=== PATIENT | female | born 1985 | race Caucasian/White ===

== ENCOUNTER → 2016-09-12 | Outpatient (CLI) | payer MEDICAID | LOC: MW.CHOBGYN 11:25 | PROVIDERS: ATTEND Obstetrics & Gynecology | DX: Z34.81 Encounter for supervision of other normal pregnancy, first trimester (principal) | CPT/HCPCS: 81003 ==

== ENCOUNTER → 2016-10-10 | Outpatient (CLI) | payer MEDICAID | LOC: MW.CHOBGYN 10:50 | PROVIDERS: ATTEND Obstetrics & Gynecology | DX: Z34.81 Encounter for supervision of other normal pregnancy, first trimester (principal) | CPT/HCPCS: 36415; 81003; 85027; 86592; 86762; 86803; 86850; 86900; 86901; 87086; 87088; 87186; 87340; 87389 ==

== ENCOUNTER → 2016-10-31 | Outpatient (CLI) | payer MEDICAID ==
--- NOTE | 2016-11-01 15:11 | US ---
EXAM DATE: 10/31/16 PATIENT'S AGE: 31 Patient: SHELTON SOLITARIO Facility: [place], [place] Site . Site : 1985 Study: US OB Pelvis [id number] 5:02:55 PM Ordering Physician: Vanda Vargas Final Report: Indication : Evaluate anatomy. TECHNIQUE: Real time valdez scale imaging of the fetus was performed as well as color Doppler analysis of the umbilical vessels. FINDINGS: Sonographic imaging demonstrates a single living intrauterine gestation. Fetus demonstrates a regular cardiac rate of 151 beats per minute. Fetus has a cephalic orientation. The placenta lies posterior without suggestion of placenta previa. Amniotic fluid volume appears normal. Amniotic fluid index 8.8 cm. The cervix is closed and measures 2.5 cm in length. The composite ultrasound gestational age is calculated at 19 weeks 4 days with an estimated sonographic due date of 23 March 2017. The estimated weight is 300 grams which lies at the 17th percentile. The following biometric measurements were obtained: Biparietal diameter: 4.6 cm / 19 weeks 5 days Head circumference: 17.1 cm / 19 weeks 4 days Abdominal circumference: 14.5 cm / 19 weeks 6 days Femur length: 3 cm / 19 weeks 2 days On anatomic survey, there is a normal appearance of the cerebral ventricles, cisterna magna and cerebellum. The nose, lips, and facial profile appear normal. The cervical, thoracic and lumbar spine are well visualized and appear normal. There is a normal four-chamber heart view and the left and right ventricular outflow tracts appear normal. diaphragm, stomach, kidneys and bladder appear normal. There is a normal three-vessel cord and cord insertion site. The four extremities appear normal. IMPRESSION: Partial placenta previa. Followup recommended. Concordance of clinical and sonographic dating. No intrinsic abnormalities noted on anatomic survey. Dictated by Angel Ashraf MD @ Nov 01 2016 2:20PM (Electronic Signature) Report Signed by Proxy. JULIÁN
== END ==
LOC: MW.US 14:29
PROVIDERS: ATTEND Obstetrics & Gynecology
DX: Z34.92 Encounter for supervision of normal pregnancy, unspecified, second trimester (principal); Z36 Encounter for antenatal screening of mother; Z3A.19 19 weeks gestation of pregnancy
CPT/HCPCS: 76805; 76805-26

== ENCOUNTER → 2016-11-07 | Outpatient (CLI) | payer MEDICAID | END | disposition home or self-care (01) | LOC: MW.CHOBGYN 13:32 | PROVIDERS: ATTEND Advanced Practice Midwife | DX: Z34.90 Encounter for supervision of normal pregnancy, unspecified, unspecified trimester (principal) | CPT/HCPCS: 36415; 80305; 82105; 82677; 84702; 86336; 87491; 87591 ==

== ENCOUNTER 2017-03-16 05:08 | Inpatient (IN) | payer MEDICAID ==
[2017-03-16] MEDS ORDERED: Misoprostol 200 MCG Tab PO PRN (06:02)
[2017-03-16] MEDS ORDERED: Misoprostol 25 MCG (1/4 of 100 MCG) Tab PO PRN (06:02)
[2017-03-16] MEDS ORDERED: Carboprost Tromethamine 250 MCG/1 ML Amp IM PRN (06:02)
[2017-03-16] MEDS ORDERED: Methylergonovine 0.2 MG/1 ML Amp IM PRN (06:02)
[2017-03-16] MEDS ORDERED: Sodium Chloride 0.9% 10 ML Syringe FLUSH PRN (06:02)
[2017-03-16] MEDS ORDERED: Terbutaline 1 MG/ML SDV SUBCUT PRN (06:02)
[2017-03-16] MEDS ORDERED: Water For Irrigation,Sterile 1,000 ML Container IRR PRN (06:02)
[2017-03-16] MEDS ORDERED: Misoprostol 25 MCG (1/4 of 100 MCG) Tab VAG PRN (06:02)
[2017-03-16] MEDS ORDERED: Nalbuphine 10 MG/1 ML Vial IVPUSH PRN (06:02)
[2017-03-16] MEDS ORDERED: Sodium Chloride 0.9% 2.5 ML Syringe FLUSH PRN (06:02)
[2017-03-16] MEDS ORDERED: Lidocaine 1% 50 ML MDV INJECT PRN (06:02)
[2017-03-16] MEDS ORDERED: Misoprostol 25 MCG (1/4 of 100 MCG) Tab PO SCH (06:15)
[2017-03-16] MEDS ORDERED: Lactated Ringers 1,000 ML IV SCH (06:15)
[2017-03-16] MEDS ORDERED: Oxytocin/Lactated Ringers 30 UNIT/500 ML BAG IV SCH ×2 (06:15)
[2017-03-16] MEDS ORDERED: Misoprostol 25 MCG (1/4 of 100 MCG) Tab VAG SCH (06:15)
[2017-03-16] MEDS ORDERED: Ampicillin 2 GM in Sodium Chloride 0.9% 100 ML IV ONE (06:30)
[2017-03-16] MEDS ORDERED: Ampicillin 1 GM in Sodium Chloride 0.9% 50 ML IV SCH (10:30)
--- NOTE | 2017-03-16 11:43 | PCM.LDHP ---
L&D History of Present Illness - General Date of Service: 03/16/17 Admit Problem/Dx: Patient Status Order with Admit Dx/Problem 03/16/17 05:20 Patient Status [ADT] Routine 03/16/17 06:02 Patient Status [ADT] Routine Admission Diagnosis/Problem Admission Diagnosis/Problem 03/16/17 11:39 32 yo EDC 03/19/2017 39 4/7wks B+, RI, GBS pos. Comes due to SROM clear. 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: , 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 - Past Surgical History Female Surgical History: Reports: LEEP Social & Family History - Family History Family Medical History: Noncontributory - Tobacco Use Smoking Status *Q: Current Every Day Smoker Years of Tobacco use: 5 Packs/Tins Daily: 0.5 Used Tobacco, but Quit: No Second Hand Smoke Exposure: Yes - Caffeine Use Caffeine Use: Reports: Coffee, Soda - Alcohol Use Days Per Week of Alcohol Use: 0 - Recreational Drug Use Recreational Drug Use: No Drug Use in Last 12 Months: No H&P Review of Systems - Review of Systems: Review Of Systems: See Below General: Reports: No Symptoms HEENT: Reports: No Symptoms Pulmonary: Reports: No Symptoms Cardiovascular: Reports: No Symptoms Gastrointestinal: Reports: No Symptoms Genitourinary: Reports: No Symptoms Musculoskeletal: Reports: No Symptoms Skin: Reports: No Symptoms Psychiatric: Reports: No Symptoms Neurological: Reports: No Symptoms Hematologic/Lymphatic: Reports: No Symptoms Immunologic: Reports: No Symptoms L&D Exam - Exam Exam: See Below - Vital Signs Weight: 70.307 kg - Exam General: Alert, Oriented, Cooperative HEENT: Hearing Intact Lungs: Normal Respiratory Effort GI/Abdominal Exam: Soft, Non-Tender, No Organomegaly, No Distention (gravid), No Mass Rectal Exam: Deferred Genitourinary: Cervical fluid Back Exam: Full Range of Motion Extremities: Normal Range of Motion, Non-Tender, No Pedal Edema, Normal Capillary Refill Skin: Warm, Dry, Intact Neurological: Cranial Nerves Intact Psychiatric: Alert, Normal Affect, Normal Mood - Patient Data Lab Results Last 24 hrs: Laboratory Results - last 24 hr 03/16/17 03/16/17 03/16/17 Range/Units 05:25 06:30 06:30 WBC 9.00 (4.0-11.0) K/uL RBC 4.10 L (4.30-5.90) M/uL Hgb 12.3 (12.0-16.0) g/dL Hct 37.0 (36.0-46.0) % MCV 90.2 (80.0-98.0) fL MCH 30.0 (27.0-32.0) pg MCHC 33.2 (31.0-37.0) g/dL RDW Std Deviation 46.5 (28.0-62.0) fl RDW Coeff of Logan 14 (11.0-15.0) % Plt Count 151 (150-400) K/uL MPV 12.10 H (7.40-12.00) fL Nucleated RBC % 0.0 /100WBC Nucleated RBCs # 0 K/uL Membrane Rupture POSITIVE Blood Type B POSITIVE Antibody Screen NEGATIVE Result Diagrams: 03/16/17 06:30 - Problem List (1) Supervision of normal IUP (intrauterine ) in multigravida SNOMED Code(s): 004373509, 427943115, 786487370 ICD Code: Z34.80 - ENCOUNTER FOR SUPRVSN OF NORMAL , UNSP TRIMESTER Status: Acute Current Visit: Yes Qualifiers: Trimester: third trimester Qualified Code(s): Z34.83 - Encounter for supervision of other normal , third trimester (2) SROM (spontaneous rupture of membranes) SNOMED Code(s): 280376225 ICD Code: [id number] - Status: Acute Priority: High Current Visit: Yes Problem List Initiated/Reviewed/Updated: Yes Orders Last 24hrs: Active Orders 24 hr Category Date Time Status Patient Status [ADT] Routine ADT 03/16/17 05:20 Active Patient Status [ADT] Routine ADT 03/16/17 06:02 Active Bedrest Bathroom Privileges [RC] ASDIRECTED Care 03/16/17 06:02 Active Communication Order [RC] ASDIRECTED Care 03/16/17 06:02 Active Communication Order [RC] ASDIRECTED Care 03/16/17 06:02 Active Communication Order [RC] ASDIRECTED Care 03/16/17 06:02 Active Heart Tones [RC] CONTINUOUS Care 03/16/17 06:02 Active Non Stress Test [RC] PER UNIT ROUTINE Care 03/16/17 05:20 Active Non Stress Test [RC] PER UNIT ROUTINE Care 03/16/17 06:02 Active May Shower [RC] ASDIRECTED Care 03/16/17 06:02 Active Notify Provider [RC] PRN Care 03/16/17 06:02 Active Notify Provider [RC] PRN Care 03/16/17 06:02 Active Notify Provider [RC] PRN Care 03/16/17 06:02 Active Notify Provider [RC] STAT Care 03/16/17 06:02 Active Oxygen Therapy [RC] ASDIRECTED Care 03/16/17 06:02 Active Up ad Sarina [RC] ASDIRECTED Care 03/16/17 05:20 Active Up ad Sarina [RC] ASDIRECTED Care 03/16/17 06:02 Active Vaginal Exam [RC] Click to Edit Care 03/16/17 05:20 Active Vaginal Exam [RC] PRN Care 03/16/17 06:02 Active Vaginal Exam [RC] PRN Care 03/16/17 06:02 Active Vital Signs [RC] PER UNIT ROUTINE Care 03/16/17 05:20 Active Vital Signs [RC] PER UNIT ROUTINE Care 03/16/17 06:02 Active Vital Signs [RC] PER UNIT ROUTINE Care 03/16/17 06:02 Active Regular Diet [DIET] Diet 03/16/17 Breakfast Active Ampicillin 1 gm Med 03/16/17 10:30 Active Sodium Chloride 0.9% [Normal Saline] 50 ml IV Q4H Carboprost Tromethamine [Hemabate DS] Med 03/16/17 06:02 Active 250 mcg IM ASDIRECTED PRN Lactated Ringers [Ringers, Lactated] 1,000 ml Med 03/16/17 06:15 Active IV ASDIRECTED Lidocaine 1% [Xylocaine 1%] Med 03/16/17 06:02 Active 50 ml INJECT .ONCE PRN Methylergonovine [Methergine] Med 03/16/17 06:02 Active 0.2 mg IM ASDIRECTED PRN Misoprostol [Cytotec] Med 03/16/17 06:02 Active 200 mcg PO .ONCE PRN Misoprostol [Cytotec] Med 03/16/17 06:15 Active 25 mcg PO .ONCE Misoprostol [Cytotec] Med 03/16/17 06:02 Active 25 mcg PO Q4H PRN Misoprostol [Cytotec] Med 03/16/17 06:15 Active 25 mcg VAG .ONCE Misoprostol [Cytotec] Med 03/16/17 06:02 Active 25 mcg VAG Q4H PRN Nalbuphine [Nubain] Med 03/16/17 06:02 Active 10 mg IVPUSH Q1H PRN Oxytocin/Lactated Ringers [Pitocin in LR 30 Units/500 Med 03/16/17 06:15 Active ML] 30 unit in 500 ml IV TITRATE Sodium Chloride 0.9% [Saline Flush] Med 03/16/17 06:02 Active 10 ml FLUSH ASDIRECTED PRN Sodium Chloride 0.9% [Saline Flush] Med 03/16/17 06:02 Active 2.5 ml FLUSH ASDIRECTED PRN Terbutaline [Brethine] Med 03/16/17 06:02 Active 0.25 mg SUBCUT ASDIRECTED PRN Water For Irrigation,Sterile [Sterile Water for Med 03/16/17 06:02 Active Irrigation] 1,000 ml IRR ASDIRECTED PRN Scalp Electrode [WOMSER] Per Unit Routine Oth 03/16/17 06:02 Ordered Medication Administration Instruction [OM.PC] Q3H Oth 03/16/17 06:15 Ordered Peripheral IV Insertion Adult [OM.PC] Routine Oth 03/16/17 06:02 Ordered Resuscitation Status Routine Resus Stat 03/16/17 06:02 Ordered Medication Orders Carboprost Tromethamine (Hemabate Ds) 250 mcg IM ASDIRECTED PRN PRN Reason: Post Hemorrhage Lactated Ringer's (Ringers, Lactated) 1,000 mls @ 150 mls/hr IV ASDIRECTED MARGARITA Last Admin: 03/16/17 06:35 Dose: 150 mls/hr Oxytocin/Lactated Ringer's (Pitocin In Lr 30 Units/500 Ml) 30 unit in 500 mls @ 2 mls/hr IV TITRATE MARGARITA; 2 MUNITS/MIN PRN Reason: Protocol Ampicillin Sodium 1 gm/ Sodium (Chloride) 50 mls @ 100 mls/hr IV Q4H [facility] Last Admin: 03/16/17 10:52 Dose: 100 mls/hr Lidocaine HCl (Xylocaine 1%) 50 ml INJECT .ONCE PRN PRN Reason: Laceration repair Methylergonovine Maleate (Methergine) 0.2 mg IM ASDIRECTED PRN PRN Reason: Post Hemorrhage Misoprostol (Cytotec) 200 mcg PO .ONCE PRN PRN Reason: Post Hemorrhage Misoprostol (Cytotec) 25 mcg VAG Q4H PRN PRN Reason: Cervical Ripening Misoprostol (Cytotec) 25 mcg PO Q4H PRN PRN Reason: Cervical Ripening Misoprostol (Cytotec) 25 mcg VAG .ONCE [facility] Last Admin: 03/16/17 06:46 Dose: 25 mcg Misoprostol (Cytotec) 25 mcg PO .ONCE [facility] Last Admin: 03/16/17 06:46 Dose: 25 mcg Nalbuphine HCl (Nubain) 10 mg IVPUSH Q1H PRN PRN Reason: Pain (severe 7-10) Last Admin: 03/16/17 09:40 Dose: 10 mg Sodium Chloride (Saline Flush) 10 ml FLUSH ASDIRECTED PRN PRN Reason: Keep Vein Open Sodium Chloride (Saline Flush) 2.5 ml FLUSH ASDIRECTED PRN PRN Reason: Keep Vein Open Sterile Water (Sterile Water For Irrigation) 1,000 ml IRR ASDIRECTED PRN PRN Reason: delivery Terbutaline Sulfate (Brethine) 0.25 mg SUBCUT ASDIRECTED PRN PRN Reason: Tacysystole Assessment/Plan Comment:: Labor A: 32 yo EDC 03/19/2017 39 4/7wks B+, RI, GBS pos. Comes due to SROM clear. No active labor P: Cytotec was given x2 doses and then del healthy baby girl
--- NOTE | 2017-03-16 11:47 | PCM.DEL ---
L & D Note - General Info Date of Service: 03/16/17 Mother's Due Date: 03/19/17 - Delivery Note Labor: Spontaneous Delivery Outcome: Livebirth Infant Delivery Method: Spontaneous Vaginal Delivery-Single Presentation: Vertex Nuchal Cord: Present Anesthesia Type: None Episiotomy Type: None Laceration: None Placenta: Intact, Spontaneous Cord: 3 Vessels Estimated Blood Loss: 100 Resuscitation Needed: No : Stimulated Second Stage Interventions: Reports: Pushing Effectively, Pushing, Pulls Own Legs Back - General Info Date of Service: 03/16/17 Admission Dx/Problem (Free Text): Patient Status Order with Admit Dx/Problem 03/16/17 05:20 Patient Status [ADT] Routine 03/16/17 06:02 Patient Status [ADT] Routine Admission Diagnosis/Problem Admission Diagnosis/Problem 03/16/17 11:39 32 yo EDC 03/19/2017 39 4/7wks B+, RI, GBS pos. Comes due to SROM clear. Functional Status: Reports: Pain Controlled, Tolerating Diet, Urinating - Review of Systems General: Reports: No Symptoms HEENT: Reports: No Symptoms Pulmonary: Reports: No Symptoms Cardiovascular: Reports: No Symptoms Gastrointestinal: Reports: No Symptoms Genitourinary: Reports: No Symptoms Musculoskeletal: Reports: No Symptoms Skin: Reports: No Symptoms Neurological: Reports: No Symptoms Psychiatric: Reports: No Symptoms - Patient Data Weight - Most Recent: 70.307 kg Lab Results Last 24 Hours: Laboratory Results - last 24 hr 03/16/17 03/16/17 03/16/17 Range/Units 05:25 06:30 06:30 WBC 9.00 (4.0-11.0) K/uL RBC 4.10 L (4.30-5.90) M/uL Hgb 12.3 (12.0-16.0) g/dL Hct 37.0 (36.0-46.0) % MCV 90.2 (80.0-98.0) fL MCH 30.0 (27.0-32.0) pg MCHC 33.2 (31.0-37.0) g/dL RDW Std Deviation 46.5 (28.0-62.0) fl RDW Coeff of Logan 14 (11.0-15.0) % Plt Count 151 (150-400) K/uL MPV 12.10 H (7.40-12.00) fL Nucleated RBC % 0.0 /100WBC Nucleated RBCs # 0 K/uL Membrane Rupture POSITIVE Blood Type B POSITIVE Antibody Screen NEGATIVE Med Orders - Current: Current Medications Carboprost Tromethamine (Hemabate Ds) 250 mcg IM ASDIRECTED PRN PRN Reason: Post Hemorrhage Lactated Ringer's (Ringers, Lactated) 1,000 mls @ 150 mls/hr IV ASDIRECTED MARGARITA Last Admin: 03/16/17 06:35 Dose: 150 mls/hr Oxytocin/Lactated Ringer's (Pitocin In Lr 30 Units/500 Ml) 30 unit in 500 mls @ 2 mls/hr IV TITRATE MARGARITA; 2 MUNITS/MIN PRN Reason: Protocol Ampicillin Sodium 1 gm/ Sodium (Chloride) 50 mls @ 100 mls/hr IV Q4H MARGARITA Last Admin: 03/16/17 10:52 Dose: 100 mls/hr Lidocaine HCl (Xylocaine 1%) 50 ml INJECT .ONCE PRN PRN Reason: Laceration repair Methylergonovine Maleate (Methergine) 0.2 mg IM ASDIRECTED PRN PRN Reason: Post Hemorrhage Misoprostol (Cytotec) 200 mcg PO .ONCE PRN PRN Reason: Post Hemorrhage Misoprostol (Cytotec) 25 mcg VAG Q4H PRN PRN Reason: Cervical Ripening Misoprostol (Cytotec) 25 mcg PO Q4H PRN PRN Reason: Cervical Ripening Misoprostol (Cytotec) 25 mcg VAG .ONCE MARGARITA Last Admin: 03/16/17 06:46 Dose: 25 mcg Misoprostol (Cytotec) 25 mcg PO .ONCE MARGARITA Last Admin: 03/16/17 06:46 Dose: 25 mcg Nalbuphine HCl (Nubain) 10 mg IVPUSH Q1H PRN PRN Reason: Pain (severe 7-10) Last Admin: 03/16/17 09:40 Dose: 10 mg Sodium Chloride (Saline Flush) 10 ml FLUSH ASDIRECTED PRN PRN Reason: Keep Vein Open Sodium Chloride (Saline Flush) 2.5 ml FLUSH ASDIRECTED PRN PRN Reason: Keep Vein Open Sterile Water (Sterile Water For Irrigation) 1,000 ml IRR ASDIRECTED PRN PRN Reason: delivery Terbutaline Sulfate (Brethine) 0.25 mg SUBCUT ASDIRECTED PRN PRN Reason: Tacysystole Discontinued Medications Ampicillin Sodium 2 gm/ Sodium (Chloride) 100 mls @ 200 mls/hr IV ONETIME ONE Stop: 03/16/17 06:59 Last Admin: 03/16/17 06:44 Dose: 200 mls/hr Oxytocin/Lactated Ringer's (Pitocin In Lr 30 Units/500 Ml) 30 unit in 500 mls @ 999 mls/hr IV ASDIRECTED MARGARITA PRN Reason: 999 MUNITS/MIN Stop: 03/16/17 06:46 - Exam General: Alert, Cooperative Lungs: Normal Respiratory Effort GI/Abdominal Exam: Soft, Non-Tender, No Organomegaly, No Distention, No Mass, Pelvis Stable (Female) Exam: Normal External Exam, Normal Bimanual Exam, Vaginal Bleeding Back Exam: Full Range of Motion Extremities: Normal Range of Motion, Non-Tender, No Pedal Edema, Normal Capillary Refill Skin: Warm, Dry, Intact Wound/Incisions: Healing Well Neurological: No New Focal Deficit, Normal Speech, Normal Tone Psy/Mental Status: Alert, Normal Affect, Normal Mood - Problem List & Annotations (1) Supervision of normal IUP (intrauterine ) in multigravida SNOMED Code(s): 304855360, 167650936, 611679357 Code(s): Z34.80 - ENCOUNTER FOR SUPRVSN OF NORMAL , UNSP TRIMESTER Status: Acute Current Visit: Yes Qualifiers: Trimester: third trimester Qualified Code(s): Z34.83 - Encounter for supervision of other normal , third trimester (2) SROM (spontaneous rupture of membranes) SNOMED Code(s): 090909397 Code(s): OIR7174 - Status: Acute Priority: High Current Visit: Yes (3) (normal spontaneous vaginal delivery) SNOMED Code(s): 52202544 Code(s): O80 - ENCOUNTER FOR FULL-TERM UNCOMPLICATED DELIVERY Status: Acute Priority: High Current Visit: Yes - Problem List Review Problem List Initiated/Reviewed/Updated: Yes - Assessment Assessment:: Delivery A: of viable female over intact perineum, and Wt pending. Unmedicated delivery, Intact perineum, EBL 100cc, Stable - Plan Plan:: Labor A: 32 yo EDC 03/19/2017 39 4/7wks B+, RI, GBS pos. Comes due to SROM clear. No active labor P: Cytotec was given x2 doses and then del healthy baby girl Delivery P: routine pp plan of care
[2017-03-16] MEDS ORDERED: Ibuprofen 400 MG Tab PO PRN (11:49)
[2017-03-16] MEDS ORDERED: Docusate Sodium 100 MG Cap PO PRN (11:49)
[2017-03-16] MEDS ORDERED: Lanolin 100% Cream 7 GM Tube TOP PRN (11:49)
[2017-03-16] MEDS ORDERED: Bisacodyl 10 MG Supp RECTAL PRN (11:49)
[2017-03-16] MEDS ORDERED: Acetaminophen 500 MG Tab PO PRN ×2 (11:49)
[2017-03-16] MEDS ORDERED: Benzocaine/Menthol 20%-0.5% Spray 78 GM Cannister TOP PRN (11:49)
[2017-03-16] MEDS ORDERED: Witch Hazel Medicated Pads 40/Jar TOP PRN (11:49)
[2017-03-16] MEDS ORDERED: oxyCODONE 5 MG Tab PO PRN (11:49)
[2017-03-16] MEDS: Ibuprofen 800 MG Tab PO PRN ×2 (12:03→17:51)
[2017-03-17 07:53] VITALS: BP 135/88
--- NOTE | 2017-03-17 08:10 | PCM.DCSUM1 ---
Discharge Summary - Hospital Course Free Text/Narrative:: Discharge home with . Follow up 6 weeks for post or sooner if needed. - Discharge Data Discharge Date: 03/17/17 Discharge Disposition: Home, Self-Care 01 Condition: Good - Discharge Diagnosis/Problem(s) (1) Supervision of normal IUP (intrauterine ) in multigravida SNOMED Code(s): 212762720, 123135065, 761709596 ICD Code: Z34.80 - ENCOUNTER FOR SUPRVSN OF NORMAL , UNSP TRIMESTER Status: Acute Current Visit: Yes Qualifiers: Trimester: third trimester Qualified Code(s): Z34.83 - Encounter for supervision of other normal , third trimester (2) SROM (spontaneous rupture of membranes) SNOMED Code(s): 796028092 ICD Code: IED9677 - Status: Acute Priority: High Current Visit: Yes (3) (normal spontaneous vaginal delivery) SNOMED Code(s): 94257868 ICD Code: O80 - ENCOUNTER FOR FULL-TERM UNCOMPLICATED DELIVERY Status: Acute Priority: High Current Visit: Yes - Patient Instructions Diet: Usual Diet as Tolerated Activity: As Tolerated, Rest and Relax Today Driving: May Drive Today Showering/Bathing: May Shower Notify Provider of: Fever, Increased Pain, Drainage, Nausea and/or Vomiting Other/Special Instructions: Discharge home with . Follow up 6 weeks for post or sooner if needed. - Discharge Plan Home Medications: Home Meds Ethinyl Estradiol/Etonogestrel [Nuvaring Vaginal Ring] 03/04/14 [History] Multivitamin [Multi-Vitamin Daily] 1 tab PO DAILY 03/04/14 [History] Referrals: [facility] [Outside] Lizzie Grissom CNM [Primary Care Provider] - 04/27/17 10:45 am - General Info Date of Service: 03/17/17 Admission Dx/Problem (Free Text: Patient Status Order with Admit Dx/Problem 03/16/17 05:20 Patient Status [ADT] Routine 03/16/17 06:02 Patient Status [ADT] Routine Admission Diagnosis/Problem Admission Diagnosis/Problem 03/16/17 11:39 32 yo EDC 03/19/2017 39 4/7wks B+, RI, GBS pos. Comes due to SROM clear. Functional Status: Reports: Pain Controlled, Tolerating Diet, Ambulating, Urinating - Review of Systems General: Reports: No Symptoms HEENT: Reports: No Symptoms Pulmonary: Reports: No Symptoms Cardiovascular: Reports: No Symptoms Gastrointestinal: Reports: No Symptoms Genitourinary: Reports: No Symptoms Musculoskeletal: Reports: No Symptoms Skin: Reports: No Symptoms Neurological: Reports: No Symptoms Psychiatric: Reports: No Symptoms - Patient Data Vitals - Most Recent: Last Vital Signs Temp 36.9 C 03/17/17 07:45 Pulse 94 03/17/17 07:45 Resp 18 03/17/17 07:45 BP 135/88 03/17/17 07:45 Pulse Ox 97 03/17/17 07:45 Weight - Most Recent: 70.307 kg Med Orders - Current: Current Medications Acetaminophen (Tylenol Extra Strength) 500 mg PO Q4H PRN PRN Reason: Pain Acetaminophen (Tylenol Extra Strength) 1,000 mg PO Q4H PRN PRN Reason: Pain Last Admin: 03/16/17 21:14 Dose: 1,000 mg Benzocaine/Menthol (Dermoplast Pain Relief 20%-0.5% [place]) 78 gm TOP ASDIRECTED PRN PRN Reason: Perineal Comfort Measure Last Admin: 03/16/17 12:04 Dose: 78 gm Bisacodyl (Dulcolax) 10 mg RECTAL .ONCE PRN PRN Reason: Constipation Docusate Sodium (Colace) 100 mg PO BID PRN PRN Reason: Constipation Last Admin: 03/16/17 21:14 Dose: 100 mg Emollient Ointment (Lansinoh Hpa) 0 gm TOP ASDIRECTED PRN PRN Reason: Sore Nipples Last Admin: 03/17/17 06:53 Dose: 1 applic Ibuprofen (Motrin) 400 mg PO Q4H PRN PRN Reason: Pain Ibuprofen (Motrin) 800 mg PO Q6H PRN PRN Reason: Pain Last Admin: 03/16/17 17:51 Dose: 800 mg Oxycodone HCl (Oxycodone) 5 mg PO Q2H PRN PRN Reason: Pain Last Admin: 03/16/17 21:15 Dose: 5 mg Witch [place] (Tucks) 1 pad TOP ASDIRECTED PRN PRN Reason: comfort care Last Admin: 03/16/17 12:03 Dose: 1 tub Discontinued Medications Carboprost Tromethamine (Hemabate Ds) 250 mcg IM ASDIRECTED PRN PRN Reason: Post Hemorrhage Ampicillin Sodium 2 gm/ Sodium (Chloride) 100 mls @ 200 mls/hr IV ONETIME ONE Stop: 03/16/17 06:59 Last Admin: 03/16/17 06:44 Dose: 200 mls/hr Lactated Ringer's (Ringers, Lactated) 1,000 mls @ 150 mls/hr IV ASDIRECTED MARGARITA Last Admin: 03/16/17 06:35 Dose: 150 mls/hr Oxytocin/Lactated Ringer's (Pitocin In Lr 30 Units/500 Ml) 30 unit in 500 mls @ 999 mls/hr IV ASDIRECTED MARGARITA PRN Reason: 999 MUNITS/MIN Stop: 03/16/17 06:46 Last Admin: 03/16/17 11:25 Dose: 999 munits/min, 999 mls/hr Oxytocin/Lactated Ringer's (Pitocin In Lr 30 Units/500 Ml) 30 unit in 500 mls @ 2 mls/hr IV TITRATE MARGARITA; 2 MUNITS/MIN PRN Reason: Protocol Ampicillin Sodium 1 gm/ Sodium (Chloride) 50 mls @ 100 mls/hr IV Q4H MARGARITA Last Admin: 03/16/17 10:52 Dose: 100 mls/hr Lidocaine HCl (Xylocaine 1%) 50 ml INJECT .ONCE PRN PRN Reason: Laceration repair Methylergonovine Maleate (Methergine) 0.2 mg IM ASDIRECTED PRN PRN Reason: Post Hemorrhage Misoprostol (Cytotec) 200 mcg PO .ONCE PRN PRN Reason: Post Hemorrhage Misoprostol (Cytotec) 25 mcg VAG Q4H PRN PRN Reason: Cervical Ripening Misoprostol (Cytotec) 25 mcg PO Q4H PRN PRN Reason: Cervical Ripening Misoprostol (Cytotec) 25 mcg VAG .ONCE MARGARITA Last Admin: 03/16/17 06:46 Dose: 25 mcg Misoprostol (Cytotec) 25 mcg PO .ONCE MARGARITA Last Admin: 03/16/17 06:46 Dose: 25 mcg Nalbuphine HCl (Nubain) 10 mg IVPUSH Q1H PRN PRN Reason: Pain (severe 7-10) Last Admin: 03/16/17 09:40 Dose: 10 mg Sodium Chloride (Saline Flush) 10 ml FLUSH ASDIRECTED PRN PRN Reason: Keep Vein Open Sodium Chloride (Saline Flush) 2.5 ml FLUSH ASDIRECTED PRN PRN Reason: Keep Vein Open Sterile Water (Sterile Water For Irrigation) 1,000 ml IRR ASDIRECTED PRN PRN Reason: delivery Last Admin: 03/16/17 11:25 Dose: 1,000 ml Terbutaline Sulfate (Brethine) 0.25 mg SUBCUT ASDIRECTED PRN PRN Reason: Tacysystole - Exam General: Reports: Alert, Oriented, Cooperative, No Acute Distress Lungs: Reports: Normal Respiratory Effort GI/Abdominal Exam: Soft, Non-Tender, No Distention, No Mass (Female) Exam: Vaginal Bleeding Rectal (Female) Exam: Deferred Back Exam: Reports: Full Range of Motion Extremities: Normal Range of Motion, Non-Tender, No Pedal Edema, Normal Capillary Refill Skin: Reports: Warm, Dry, Intact Wound/Incisions: Reports: Healing Well Neurological: Reports: No New Focal Deficit, Normal Speech, Normal Tone Psy/Mental Status: Reports: Alert, Normal Affect, Normal Mood *Q Meaningful Use (DIS) - VTE *Q VTE Criteria *Q: - Stroke *Q Stroke Criteria *Q: - AMI *Q AMI Criteria *Q:
[2017-03-17] MEDS: Ibuprofen 800 MG Tab PO PRN (08:45)
== END 2017-03-17 14:53 | disposition home or self-care (01) | DRG 775 ==
LOC: MW.OB 05:08 → MW.OBCHECK 05:08 → MW.OB 06:02 → OBSVTOIN 11:25 → MW.OB 14:00
PROVIDERS: ADMIT Obstetrics & Gynecology; ATTEND Obstetrics & Gynecology
PROC: 10E0XZZ Delivery of Products of Conception, External Approach (ICD-10-PCS; principal; 2017-03-16)
PROC: 3E0P7GC Introduction of Other Therapeutic Substance into Female Reproductive, Via Natural or Artificial Opening (ICD-10-PCS; 2017-03-16)
DX: O42.02 Full-term premature rupture of membranes, onset of labor within 24 hours of rupture (principal); Z3A.39 39 weeks gestation of pregnancy; Z37.0 Single live birth
CPT/HCPCS: 36415; 59025; 84112; 85027; 86850; 86900; 86901; A9270-GY; J0290; J2300; J7030; J7050; J7120

== ENCOUNTER 2020-08-08 18:26 | Inpatient (IN) | payer MEDICAID ==
[2020-08-08] MEDS ORDERED: Carboprost Tromethamine 250 MCG/1 ML Amp IM PRN (20:16)
[2020-08-08] MEDS ORDERED: Sodium Chloride 0.9% 10 ML Syringe FLUSH PRN (20:16)
[2020-08-08] MEDS ORDERED: Sodium Chloride 0.9% 2.5 ML Syringe FLUSH PRN (20:16)
[2020-08-08] MEDS ORDERED: Misoprostol 200 MCG Tab PO PRN (20:16)
[2020-08-08] MEDS ORDERED: Nalbuphine 10 MG/1 ML Vial IVPUSH PRN (20:16)
[2020-08-08] MEDS ORDERED: Ondansetron 4 MG/2 ML SDV IVPUSH PRN (20:16)
[2020-08-08] MEDS ORDERED: Methylergonovine 0.2 MG/1 ML Amp IM PRN (20:16)
[2020-08-08] MEDS ORDERED: Lidocaine 1% 50 ML MDV INJECT PRN (20:16)
[2020-08-08] MEDS ORDERED: Sodium Chloride 0.9% 10 ML SDV IV PRN (20:16)
[2020-08-08] MEDS ORDERED: Tranexamic Acid 1,000 MG in Sodium Chloride 0.9% 100 ML IV PRN (20:16)
[2020-08-08] MEDS ORDERED: Water For Irrigation,Sterile 1,000 ML Container IRR PRN (20:16)
[2020-08-08] MEDS ORDERED: Butorphanol 1 MG/ML SDV IVPUSH PRN (20:16)
[2020-08-08] MEDS ORDERED: Oxytocin/0.9 % Sodium Chloride 30 UNIT/500 ML BAG IV SCH (20:30)
[2020-08-08] MEDS ORDERED: Ampicillin 2 GM in Sodium Chloride 0.9% 100 ML IV ONE (20:30)
[2020-08-08] MEDS: Lactated Ringers 1,000 ML IV SCH ×2 (20:40→22:15)
[2020-08-08] MEDS ORDERED: Ropivacaine 0.2% PF 2 MG/ML 20 ML SDV ONE (21:38)
[2020-08-08] MEDS ORDERED: fentaNYL 100 MCG/2 ML SDV ONE (21:38)
[2020-08-08] MEDS ORDERED: Ropivacaine HCl/PF 100 ML ONE (21:39)
--- NOTE | 2020-08-08 21:55 | PCM.LDHP ---
L&D History of Present Illness - General Date of Service: 08/08/20 Admit Problem/Dx: Patient Status Order with Admit Dx/Problem 08/08/20 18:25 Patient Status [ADT] Routine 08/08/20 20:16 Patient Status [ADT] Routine Admission Diagnosis/Problem Admission Diagnosis/Problem Source of Information: Patient History Limitations: Reports: No Limitations - History of Present Illness Introduction:: 35yo [id number] @ 38w5d GA here with contractions x1 day, getting stronger and closer together. Denies VB or LOF. Good FM care only remarkable for GBS positive status. 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 - Past Surgical History Female Surgical History: Reports: LEEP Social & Family History - Family History Family Medical History: No Pertinent Family History - Caffeine Use Caffeine Use: Reports: Coffee, Soda H&P Review of Systems - Review of Systems: Review Of Systems: See Below General: Reports: No Symptoms HEENT: Reports: No Symptoms Pulmonary: Reports: No Symptoms Cardiovascular: Reports: No Symptoms Gastrointestinal: Reports: No Symptoms Genitourinary: Reports: No Symptoms Musculoskeletal: Reports: No Symptoms Skin: Reports: No Symptoms Psychiatric: Reports: No Symptoms Neurological: Reports: No Symptoms Hematologic/Lymphatic: Reports: No Symptoms Immunologic: Reports: No Symptoms L&D Exam - Exam Exam: See Below - Vital Signs Weight: 69.853 kg - OB Specific Contraction Intensity: Mild to Moderate Movement: Active Heart Tones: Present Heart Rate (FHR) Variability: Moderate (6-25 bmp) Presentation: Vertex - Mena Score Mena Score Cervix Position: Midposition Mena Score Consistency: Soft Mena Score Effacement: >80% Mena Score Dilation: 3-4 cm Mena Score Infant's Station: -1 ,0 Mena Score Total: 10 - Exam General: Alert, Oriented Lungs: Normal Respiratory Effort Cardiovascular: Regular Rate GI/Abdominal Exam: Soft Extremities: No Pedal Edema Psychiatric: Alert, Normal Affect, Normal Mood - Patient Data Lab Results Last 24 hrs: Laboratory Results - last 24 hr 08/08/20 08/08/20 Range/Units 19:05 20:40 WBC 11.37 H (4.0-11.0) K/uL RBC 4.19 L (4.30-5.90) M/uL Hgb 13.1 (12.0-16.0) g/dL Hct 39.3 (36.0-46.0) % MCV 93.8 (80.0-98.0) fL MCH 31.3 (27.0-32.0) pg MCHC 33.3 (31.0-37.0) g/dL RDW Std Deviation 46.9 (28.0-62.0) fl RDW Coeff of Logan 14 (11.0-15.0) % Plt Count 176 (150-400) K/uL MPV 12.30 H (7.40-12.00) fL Nucleated RBC % 0.0 /100WBC Nucleated RBCs # 0 K/uL SARS-CoV-2 RNA (IVELISSE) NEGATIVE (NEGATIVE) Result Diagrams: 08/08/20 20:40 - Problem List (1) Uterine contractions at greater than 20 weeks of gestation SNOMED Code(s): 243153390 ICD Code: IYG8124 - Status: Acute Current Visit: Yes (2) Supervision of normal IUP (intrauterine ) in multigravida SNOMED Code(s): 337537704, 870523109, 887922234 ICD Code: Z34.80 - ENCOUNTER FOR SUPRVSN OF NORMAL , UNSP TRIMESTER Status: Acute Current Visit: No Qualifiers: Trimester: third trimester Qualified Code(s): Z34.83 - Encounter for supervision of other normal , third trimester Problem List Initiated/Reviewed/Updated: Yes Orders Last 24hrs: Active Orders 24 hr Category Date Time Status Patient Status [ADT] Routine ADT 08/08/20 20:16 Active Heart Tones [RC] CONTINUOUS Care 08/08/20 20:16 Active May Shower [RC] ASDIRECTED Care 08/08/20 20:16 Active Notify Provider [RC] PRN Care 08/08/20 20:16 Active Up ad Sarina [RC] ASDIRECTED Care 08/08/20 18:48 Active Up ad Sarina [RC] ASDIRECTED Care 08/08/20 20:16 Active Vital Signs [RC] PER UNIT ROUTINE Care 08/08/20 18:48 Active Vital Signs [RC] PER UNIT ROUTINE Care 08/08/20 20:16 Active Regular Diet [DIET] Diet 08/09/20 Breakfast Active RPR (SYPHILIS SERO) W/ RFLX [REF] Routine Lab 08/08/20 20:40 Received TYPE AND SCREEN [BBK] Routine Lab 08/08/20 20:40 Received Ampicillin 1 gm Med 08/09/20 00:30 Active Sodium Chloride 0.9% [Normal Saline] 50 ml IV Q4H Butorphanol [Stadol] Med 08/08/20 20:16 Active 1 mg IVPUSH Q1H PRN Carboprost Tromethamine [Hemabate DS] Med 08/08/20 20:16 Active 250 mcg IM ASDIRECTED PRN Lactated Ringers [Ringers, Lactated] 1,000 ml Med 08/08/20 20:30 Active IV ASDIRECTED Lidocaine 1% [Xylocaine 1%] Med 08/08/20 20:16 Active 50 ml INJECT ONETIME PRN Methylergonovine [Methergine] Med 08/08/20 20:16 Active 0.2 mg IM ASDIRECTED PRN Nalbuphine [Nubain] Med 08/08/20 20:16 Active 10 mg IVPUSH Q1H PRN Ondansetron [Zofran] Med 08/08/20 20:16 Active 4 mg IVPUSH Q6H PRN Oxytocin/0.9 % Sodium Chloride [Oxytocin 30 Unit/500 ML Med 08/08/20 20:30 Active -NS] 30 unit in 500 ml IV TITRATE Sodium Chloride 0.9% [Normal Saline] Med 08/08/20 20:16 Active 10 ml IV ASDIRECTED PRN Sodium Chloride 0.9% [Saline Flush] Med 08/08/20 20:16 Active 10 ml FLUSH ASDIRECTED PRN Sodium Chloride 0.9% [Saline Flush] Med 08/08/20 20:16 Active 2.5 ml FLUSH ASDIRECTED PRN Tranexamic Acid [Cyklokapron] 1,000 mg Med 08/08/20 20:16 Active Sodium Chloride 0.9% [Normal Saline] 100 ml IV ONETIME Water For Irrigation,Sterile [Sterile Water for Med 08/08/20 20:16 Active Irrigation] 1,000 ml IRR ASDIRECTED PRN miSOPROStoL [Cytotec] Med 08/08/20 20:16 Active 200 mcg PO ONETIME PRN Scalp Electrode [WOMSER] Per Unit Routine Oth 08/08/20 20:16 Ordered Peripheral IV Insertion Adult [OM.PC] Routine Oth 08/08/20 20:16 Ordered Resuscitation Status Routine Resus Stat 08/08/20 18:48 Ordered Medication Orders Butorphanol Tartrate (Stadol) 1 mg IVPUSH Q1H PRN PRN Reason: Pain Carboprost Tromethamine (Hemabate Ds) 250 mcg IM ASDIRECTED PRN PRN Reason: Post Hemorrhage Lactated Ringer's (Ringers, Lactated) 1,000 mls @ 150 mls/hr IV ASDIRECTED MARGARITA Last Admin: 08/08/20 20:40 Dose: 125 mls/hr Documented by: DEYSI Oxytocin/Sodium Chloride (Oxytocin 30 Unit/500 Ml-Ns) 30 unit in 500 mls @ 999 mls/hr IV TITRATE MARGARITA Tranexamic Acid 1,000 mg/ (Sodium Chloride) 110 mls @ 660 mls/hr IV ONETIME PRN PRN Reason: Bleeding Ampicillin Sodium 1 gm/ Sodium (Chloride) 50 mls @ 100 mls/hr IV Q4H MARGARITA Lidocaine HCl (Xylocaine 1%) 50 ml INJECT ONETIME PRN PRN Reason: Laceration repair Methylergonovine Maleate (Methergine) 0.2 mg IM ASDIRECTED PRN PRN Reason: Post Hemorrhage Misoprostol (Cytotec) 200 mcg PO ONETIME PRN PRN Reason: Post Hemorrhage Nalbuphine HCl (Nubain) 10 mg IVPUSH Q1H PRN PRN Reason: Pain (severe 7-10) Ondansetron HCl (Zofran) 4 mg IVPUSH Q6H PRN PRN Reason: Nausea/Vomiting Sodium Chloride (Saline Flush) 10 ml FLUSH ASDIRECTED PRN PRN Reason: Keep Vein Open Sodium Chloride (Saline Flush) 2.5 ml FLUSH ASDIRECTED PRN PRN Reason: Keep Vein Open Sodium Chloride (Normal Saline) 10 ml IV ASDIRECTED PRN PRN Reason: IV Use Sterile Water (Sterile Water For Irrigation) 1,000 ml IRR ASDIRECTED PRN PRN Reason: delivery Assessment/Plan Comment:: 35yo at 38w5d here in labor. Mena score of 10 Cat 1 tracing. Expectant management. GBS positive status: Antibiotics started Epidural PRN
--- NOTE | 2020-08-08 22:12 | PCM.PREANE ---
Preanesthetic Assessment - Procedure Proposed Procedure: CORINA - Anesthesia/Transfusion/Family Hx Anesthesia History: Prior Anesthesia Without Reaction Other Type of Anesthesia Reaction Comment: Denies any known problems denies motion sickness Family History of Anesthesia Reaction: No Transfusion History: No Prior Transfusion(s) Intubation History: Unknown - Review of Systems General: No Symptoms Pulmonary: No Symptoms Cardiovascular: No Symptoms Gastrointestinal: No Symptoms Neurological: No Symptoms Other: Reports: Anxiety - Physical Assessment NPO Status Date: 08/08/20 NPO Status Time: 22:10 Height: 1.57 m Weight: 69.853 kg ASA Class: 2 Mental Status: Alert & Oriented x3 Airway Class: Mallampati = 2 Dentition: Reports: Normal Dentition Thyro-Mental Finger Breadths: 3 Mouth Opening Finger Breadths: 3 ROM/Head Extension: Full Lungs: Clear to Auscultation Cardiovascular: Regular Rate - Lab Values: Laboratory Last Values WBC 11.37 K/uL (4.0-11.0) H 08/08/20 20:40 RBC 4.19 M/uL (4.30-5.90) L 08/08/20 20:40 Hgb 13.1 g/dL (12.0-16.0) 08/08/20 20:40 Hct 39.3 % (36.0-46.0) 08/08/20 20:40 MCV 93.8 fL (80.0-98.0) 08/08/20 20:40 MCH 31.3 pg (27.0-32.0) 08/08/20 20:40 MCHC 33.3 g/dL (31.0-37.0) 08/08/20 20:40 RDW Std Deviation 46.9 fl (28.0-62.0) 08/08/20 20:40 RDW Coeff of Logan 14 % (11.0-15.0) 08/08/20 20:40 Plt Count 176 K/uL (150-400) 08/08/20 20:40 MPV 12.30 fL (7.40-12.00) H 08/08/20 20:40 Nucleated RBC % 0.0 /100WBC 08/08/20 20:40 Nucleated RBCs # 0 K/uL 08/08/20 20:40 SARS-CoV-2 RNA (IVELISSE) NEGATIVE (NEGATIVE) 08/08/20 19:05 - Allergies Allergies/Adverse Reactions: Allergies Allergy/AdvReac Type Severity Reaction Status Date / Time No Known Allergies Allergy Verified 08/08/20 18:48 - Blood Blood Available: No - Anesthesia Plan Pre-Op Medication Ordered: None - Acknowledgements Anesthesia Type Planned: Epidural Pt an Appropriate Candidate for the Planned Anesthesia: Yes Alternatives and Risks of Anesthesia Discussed w Pt/Guardian: Yes Pt/Guardian Understands and Agrees with Anesthesia Plan: Yes Additional Comments: Discussed. ? answered, permit signed. , active labor, 3-4cm, pain 8/10. 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 - Past Surgical History Female Surgical History: Reports: LEEP - HOME MEDS Home Medications: Home Meds Ethinyl Estradiol/Etonogestrel [Nuvaring Vaginal Ring] 03/04/14 [History] Multivitamin [Multi-Vitamin Daily] 1 tab PO DAILY 03/04/14 [History] - CURRENT (IN HOUSE) MEDS Current Meds: Current Medications Butorphanol Tartrate (Stadol) 1 mg IVPUSH Q1H PRN PRN Reason: Pain Carboprost Tromethamine (Hemabate Ds) 250 mcg IM ASDIRECTED PRN PRN Reason: Post Hemorrhage Lactated Ringer's (Ringers, Lactated) 1,000 mls @ 150 mls/hr IV ASDIRECTED [facility] Last Admin: 08/08/20 20:40 Dose: 125 mls/hr Documented by: Oxytocin/Sodium Chloride (Oxytocin 30 Unit/500 Ml-Ns) 30 unit in 500 mls @ 999 mls/hr IV TITRATE [facility] Tranexamic Acid 1,000 mg/ (Sodium Chloride) 110 mls @ 660 mls/hr IV ONETIME PRN PRN Reason: Bleeding Ampicillin Sodium 1 gm/ Sodium (Chloride) 50 mls @ 100 mls/hr IV Q4H [facility] Lidocaine HCl (Xylocaine 1%) 50 ml INJECT ONETIME PRN PRN Reason: Laceration repair Methylergonovine Maleate (Methergine) 0.2 mg IM ASDIRECTED PRN PRN Reason: Post Hemorrhage Misoprostol (Cytotec) 200 mcg PO ONETIME PRN PRN Reason: Post Hemorrhage Nalbuphine HCl (Nubain) 10 mg IVPUSH Q1H PRN PRN Reason: Pain (severe 7-10) Ondansetron HCl (Zofran) 4 mg IVPUSH Q6H PRN PRN Reason: Nausea/Vomiting Sodium Chloride (Saline Flush) 10 ml FLUSH ASDIRECTED PRN PRN Reason: Keep Vein Open Sodium Chloride (Saline Flush) 2.5 ml FLUSH ASDIRECTED PRN PRN Reason: Keep Vein Open Sodium Chloride (Normal Saline) 10 ml IV ASDIRECTED PRN PRN Reason: IV Use Sterile Water (Sterile Water For Irrigation) 1,000 ml IRR ASDIRECTED PRN PRN Reason: delivery Discontinued Medications Fentanyl (Sublimaze) Confirm Administered Dose 100 mcg .ROUTE .STK-MED ONE Stop: 08/08/20 21:39 Ampicillin Sodium 2 gm/ Sodium (Chloride) 100 mls @ 200 mls/hr IV ONETIME ONE Stop: 08/08/20 20:59 Last Admin: 08/08/20 21:01 Dose: 200 mls/hr Documented by: Ropivacaine (Naropin 0.2%) Confirm Administered Dose 100 mls @ as directed .ROUTE .STK-MED ONE Stop: 08/08/20 21:40 Ropivacaine (Naropin 0.2%) Confirm Administered Dose 20 ml .ROUTE .STK-MED ONE Stop: 08/08/20 21:39
[2020-08-09] MEDS ORDERED: Ampicillin 1 GM in Sodium Chloride 0.9% 50 ML IV SCH (00:30)
[2020-08-09] MEDS ORDERED: Ibuprofen 400 MG Tab PO PRN (02:31)
[2020-08-09] MEDS ORDERED: Benzocaine/Menthol 20%-0.5% Spray 78 GM Cannister TOP PRN (02:31)
[2020-08-09] MEDS ORDERED: Bisacodyl 10 MG Supp RECTAL PRN (02:31)
[2020-08-09] MEDS ORDERED: Witch Hazel Medicated Pads 40/Jar TOP PRN (02:31)
[2020-08-09] MEDS ORDERED: Acetaminophen 500 MG Tab PO PRN ×2 (02:31)
[2020-08-09] MEDS ORDERED: Lanolin 100% Cream 7 GM Tube TOP PRN (02:31)
[2020-08-09] MEDS ORDERED: Docusate Sodium 100 MG Cap PO PRN (02:31)
--- NOTE | 2020-08-09 02:38 | PCM.DEL ---
L & D Note - General Info Date of Service: 08/09/20 Mother's Due Date: 08/17/20 - Delivery Note Labor: Spontaneous Delivery Outcome: Livebirth Presentation: Vertex Nuchal Cord: Present Anesthesia Type: Epidural Episiotomy Type: None Laceration: None Placenta: Intact, Spontaneous Cord: 3 Vessels Estimated Blood Loss: 300 : Suctioned, Stimulated Score 1 min: 7 Score 5 min: 9 Delivery Comments (Free Text/Narrative):: 35yo G6 now [id number] S/P @ 38w 6d [place] course only significant for GBS positive, patient was adequately treated intrapartum. of a live male, 7lb 4oz and Apgars 7/9. Delivered GAMA, nuchal cord X1, No meconium. Vertex and body delivered without difficulty. Cord clamped and cut. Nose and mouth bulb suctioned; Baby placed on Mom's abdomen. Placenta delivered spontaneously, intact. Fundus firm, minimal bleeding. Placenta appears intact with 3 vessel cord. Perineum and vagina inspected, no lacerations. EBL 300cc. Patient tolerated procedure well, recovering in LDR. Infant by her side. - General Info Date of Service: 08/09/20 Admission Dx/Problem (Free Text): Patient Status Order with Admit Dx/Problem 08/08/20 18:25 Patient Status [ADT] Routine 08/08/20 20:16 Patient Status [ADT] Routine Admission Diagnosis/Problem Admission Diagnosis/Problem Subjective Update: Patient presented in labor. Epidural was administered. She was expectantly managed. Received 2 doses of antibiotics intrapartum for the h/o positive GBS status. SROM after the 2nd dose of antibiotics. Functional Status: Reports: Pain Controlled - Review of Systems General: Reports: No Symptoms HEENT: Reports: No Symptoms Pulmonary: Reports: No Symptoms Cardiovascular: Reports: No Symptoms Gastrointestinal: Reports: No Symptoms Genitourinary: Reports: No Symptoms Musculoskeletal: Reports: No Symptoms Skin: Reports: No Symptoms Neurological: Reports: No Symptoms Psychiatric: Reports: No Symptoms - Patient Data Weight - Most Recent: 74.843 kg Lab Results Last 24 Hours: Laboratory Results - last 24 hr 08/08/20 08/08/20 08/08/20 Range/Units 19:05 20:40 20:40 WBC 11.37 H (4.0-11.0) K/uL RBC 4.19 L (4.30-5.90) M/uL Hgb 13.1 (12.0-16.0) g/dL Hct 39.3 (36.0-46.0) % MCV 93.8 (80.0-98.0) fL MCH 31.3 (27.0-32.0) pg MCHC 33.3 (31.0-37.0) g/dL RDW Std Deviation 46.9 (28.0-62.0) fl RDW Coeff of Logan 14 (11.0-15.0) % Plt Count 176 (150-400) K/uL MPV 12.30 H (7.40-12.00) fL Nucleated RBC % 0.0 /100WBC Nucleated RBCs # 0 K/uL SARS-CoV-2 RNA (IVELISSE) NEGATIVE (NEGATIVE) Blood Type B POSITIVE Antibody Screen NEGATIVE Med Orders - Current: Current Medications Acetaminophen (Tylenol Extra Strength) 500 mg PO Q4H PRN PRN Reason: Pain Acetaminophen (Tylenol Extra Strength) 1,000 mg PO Q4H PRN PRN Reason: Pain Benzocaine/Menthol (Dermoplast Pain Relief 20%-0.5% [place]) 78 gm TOP ASDIRECTED PRN PRN Reason: Perineal Comfort Measure Bisacodyl (Dulcolax) 10 mg RECTAL ONETIME PRN PRN Reason: Constipation Butorphanol Tartrate (Stadol) 1 mg IVPUSH Q1H PRN PRN Reason: Pain Carboprost Tromethamine (Hemabate Ds) 250 mcg IM ASDIRECTED PRN PRN Reason: Post Hemorrhage Docusate Sodium (Colace) 100 mg PO BID PRN PRN Reason: Constipation Emollient Ointment (Lansinoh Hpa) 0 gm TOP ASDIRECTED PRN PRN Reason: Sore Nipples Lactated Ringer's (Ringers, Lactated) 1,000 mls @ 150 mls/hr IV ASDIRECTED [facility] Last Admin: 08/08/20 22:15 Dose: 999 mls/hr Documented by: Oxytocin/Sodium Chloride (Oxytocin 30 Unit/500 Ml-Ns) 30 unit in 500 mls @ 999 mls/hr IV TITRATE MARGARITA Tranexamic Acid 1,000 mg/ (Sodium Chloride) 110 mls @ 660 mls/hr IV ONETIME PRN PRN Reason: Bleeding Ampicillin Sodium 1 gm/ Sodium (Chloride) 50 mls @ 100 mls/hr IV Q4H MARGARITA Last Admin: 08/09/20 00:45 Dose: 100 mls/hr Documented by: Ibuprofen (Motrin) 400 mg PO Q4H PRN PRN Reason: Pain Ibuprofen (Motrin) 800 mg PO Q6H PRN PRN Reason: Pain Lidocaine HCl (Xylocaine 1%) 50 ml INJECT ONETIME PRN PRN Reason: Laceration repair Methylergonovine Maleate (Methergine) 0.2 mg IM ASDIRECTED PRN PRN Reason: Post Hemorrhage Misoprostol (Cytotec) 200 mcg PO ONETIME PRN PRN Reason: Post Hemorrhage Nalbuphine HCl (Nubain) 10 mg IVPUSH Q1H PRN PRN Reason: Pain (severe 7-10) Ondansetron HCl (Zofran) 4 mg IVPUSH Q6H PRN PRN Reason: Nausea/Vomiting Sodium Chloride (Saline Flush) 10 ml FLUSH ASDIRECTED PRN PRN Reason: Keep Vein Open Sodium Chloride (Saline Flush) 2.5 ml FLUSH ASDIRECTED PRN PRN Reason: Keep Vein Open Sodium Chloride (Normal Saline) 10 ml IV ASDIRECTED PRN PRN Reason: IV Use Sterile Water (Sterile Water For Irrigation) 1,000 ml IRR ASDIRECTED PRN PRN Reason: delivery Gregg Zambrano (Tucks) 1 pad TOP ASDIRECTED PRN PRN Reason: comfort care Discontinued Medications Fentanyl (Sublimaze) Confirm Administered Dose 100 mcg .ROUTE .STK-MED ONE Stop: 08/08/20 21:39 Ampicillin Sodium 2 gm/ Sodium (Chloride) 100 mls @ 200 mls/hr IV ONETIME ONE Stop: 08/08/20 20:59 Last Admin: 08/08/20 21:01 Dose: 200 mls/hr Documented by: Ropivacaine (Naropin 0.2%) Confirm Administered Dose 100 mls @ as directed .ROUTE .STK-MED ONE Stop: 08/08/20 21:40 Ropivacaine (Naropin 0.2%) Confirm Administered Dose 20 ml .ROUTE .STK-MED ONE Stop: 08/08/20 21:39 - Exam General: Alert, Oriented Lungs: Normal Respiratory Effort Cardiovascular: Regular Rate GI/Abdominal Exam: Soft, Non-Tender (Female) Exam: Normal External Exam Extremities: Normal Inspection, No Pedal Edema Psy/Mental Status: Alert, Normal Affect, Normal Mood - Problem List & Annotations (1) Uterine contractions at greater than 20 weeks of gestation SNOMED Code(s): 092019825 Code(s): TIS3257 - Status: Acute Current Visit: Yes (2) Supervision of normal IUP (intrauterine ) in multigravida SNOMED Code(s): 087960190, 661152216, 208338379 Code(s): Z34.80 - ENCOUNTER FOR SUPRVSN OF NORMAL , UNSP TRIMESTER Status: Acute Current Visit: No Qualifiers: Trimester: third trimester Qualified Code(s): Z34.83 - Encounter for supervision of other normal , third trimester (3) (normal spontaneous vaginal delivery) SNOMED Code(s): 61855925, 770582485 Code(s): O80 - ENCOUNTER FOR FULL-TERM UNCOMPLICATED DELIVERY Status: Acute Priority: High Current Visit: No - Problem List Review Problem List Initiated/Reviewed/Updated: Yes - My Orders Last 24 Hours: My Active Orders 08/08/20 18:48 Up ad Sarina [RC] ASDIRECTED Vital Signs [RC] PER UNIT ROUTINE Resuscitation Status Routine 08/08/20 20:16 Heart Tones [RC] CONTINUOUS May Shower [RC] ASDIRECTED Notify Provider [RC] PRN Up ad Sarina [RC] ASDIRECTED Vital Signs [RC] PER UNIT ROUTINE Butorphanol [Stadol] 1 mg IVPUSH Q1H PRN Carboprost Tromethamine [Hemabate DS] 250 mcg IM ASDIRECTED PRN Lidocaine 1% [Xylocaine 1%] 50 ml INJECT ONETIME PRN Methylergonovine [Methergine] 0.2 mg IM ASDIRECTED PRN Nalbuphine [Nubain] 10 mg IVPUSH Q1H PRN Ondansetron [Zofran] 4 mg IVPUSH Q6H PRN Sodium Chloride 0.9% [Normal Saline] 10 ml IV ASDIRECTED PRN Sodium Chloride 0.9% [Saline Flush] 10 ml FLUSH ASDIRECTED PRN Sodium Chloride 0.9% [Saline Flush] 2.5 ml FLUSH ASDIRECTED PRN Tranexamic Acid [Cyklokapron] 1,000 mg Sodium Chloride 0.9% [Normal Saline] 100 ml IV ONETIME Water For Irrigation,Sterile [Sterile Water for Irrigation] 1,000 ml IRR ASDIRECTED PRN miSOPROStoL [Cytotec] 200 mcg PO ONETIME PRN Scalp Electrode [WOMSER] Per Unit Routine Peripheral IV Insertion Adult [OM.PC] Routine 08/08/20 20:30 Lactated Ringers [Ringers, Lactated] 1,000 ml IV ASDIRECTED Oxytocin/0.9 % Sodium Chloride [Oxytocin 30 Unit/500 ML-NS] 30 unit in 500 ml IV TITRATE 08/08/20 20:40 RPR (SYPHILIS SERO) W/ RFLX [REF] Routine 08/09/20 00:30 Ampicillin 1 gm Sodium Chloride 0.9% [Normal Saline] 50 ml IV Q4H 08/09/20 02:31 Patient Status [ADT] Routine May Shower [RC] ASDIRECTED Up ad Sarina [RC] ASDIRECTED Vital Signs [RC] PER UNIT ROUTINE Acetaminophen [Tylenol Extra Strength] 1,000 mg PO Q4H PRN Acetaminophen [Tylenol Extra Strength] 500 mg PO Q4H PRN Benzocaine/Menthol [Dermoplast Pain Relief 20%-0.5% [place]] 78 gm TOP ASDIRECTED PRN Docusate Sodium [Colace] 100 mg PO BID PRN Ibuprofen [Motrin] 400 mg PO Q4H PRN Ibuprofen [Motrin] 800 mg PO Q6H PRN Lanolin [Lansinoh HPA] See Dose Instructions TOP ASDIRECTED PRN bisacodyL [Dulcolax] 10 mg RECTAL ONETIME PRN witch Betty [Tucks] 1 pad TOP ASDIRECTED PRN Assess Lochia [WOMSER] Per Unit Routine Assess Uterine Involution [WOMSER] Per Unit Routine Peripheral IV Discontinue [OM.PC] Routine 08/09/20 Breakfast Regular Diet [DIET] 08/10/20 05:11 HEMOGLOBIN/HEMATOCRIT,HH [HEME] Timed - Plan Plan:: S/P uncomplicated . Adequately treated for GBS Routine care
[2020-08-09] MEDS: Ibuprofen 800 MG Tab PO PRN ×2 (08:49→16:13)
--- NOTE | 2020-08-09 09:56 | PCM48HPAN ---
Post Anesthesia Note - EVALUATION WITHIN 48HRS OF ANESTHETIC Vital Signs in Normal Range: Yes Patient Participated in Evaluation: Yes Respiratory Function Stable: Yes Airway Patent: Yes Cardiovascular Function Stable: Yes Hydration Status Stable: Yes Pain Control Satisfactory: Yes Nausea and Vomiting Control Satisfactory: Yes Mental Status Recovered: Yes - COMMENTS/OBSERVATIONS Free Text/Narrative:: Doing well.
[2020-08-10] MEDS: Ibuprofen 800 MG Tab PO PRN (07:55)
[2020-08-10 08:20] VITALS: BP 128/87; PULSE 80
--- NOTE | 2020-08-10 18:11 | PCM.DCSUM1 ---
Discharge Summary - Hospital Course Free Text/Narrative:: 35yo G6 now [id number] S/P @ 38w 6d GA course only significant for GBS positive, patient was adequately treated intrapartum. of a live male, 7lb 4oz and Apgars 7/9. No lacerations. EBL 300cc. Patient tolerated procedure well. care has been unremarkable Diagnosis: Stroke: No - Discharge Data Discharge Date: 08/10/20 Discharge Disposition: Home, Self-Care 01 Condition: Good - Referral to Home Health Primary Care Physician: PCP None - Discharge Diagnosis/Problem(s) (1) Uterine contractions at greater than 20 weeks of gestation SNOMED Code(s): 722771970 ICD Code: [id number] - Status: Acute Current Visit: Yes (2) Supervision of normal IUP (intrauterine ) in multigravida SNOMED Code(s): 899472627, 224695597, 757530967 ICD Code: Z34.80 - ENCOUNTER FOR SUPRVSN OF NORMAL , UNSP TRIMESTER Status: Acute Current Visit: No Qualifiers: Trimester: third trimester Qualified Code(s): Z34.83 - Encounter for supervision of other normal , third trimester (3) (normal spontaneous vaginal delivery) SNOMED Code(s): 90978761, 478338823 ICD Code: O80 - ENCOUNTER FOR FULL-TERM UNCOMPLICATED DELIVERY Status: Acute Priority: High Current Visit: No - Patient Instructions Diet: Regular Diet as Tolerated Activity: As Tolerated - Discharge Plan *PRESCRIPTION DRUG MONITORING PROGRAM REVIEWED*: Not Applicable *COPY OF PRESCRIPTION DRUG MONITORING REPORT IN PATIENT LIBBY: Not Applicable Home Medications: Home Meds Ethinyl Estradiol/Etonogestrel [Nuvaring Vaginal Ring] 03/04/14 [History] Multivitamin [Multi-Vitamin Daily] 1 tab PO DAILY 03/04/14 [History] Patient Handouts: Baby Blues, Care After Vaginal Delivery Referrals: [facility] [Outside] Britt Gan CNM, ANALYSIS ANALYST [Mid-] - 09/21/20 2:00 pm (Your post appointment is on 09/21/20 at 2:00 pm with Britt Gan. Masks are required.) - Discharge Summary/Plan Comment DC Time >30 min.: Yes Discharge Summary/Plan Comment: Patient ready for discharge - General Info Date of Service: 08/10/20 Admission Dx/Problem (Free Text: Patient Status Order with Admit Dx/Problem 08/08/20 18:25 Patient Status [ADT] Routine 08/08/20 20:16 Patient Status [ADT] Routine Admission Diagnosis/Problem Admission Diagnosis/Problem Subjective Update: Patient is doing well, no c/o. Minimal bleeding. Voiding without burning. Ambulating. Tolerating PO well. Functional Status: Reports: Pain Controlled - Review of Systems General: Reports: No Symptoms HEENT: Reports: No Symptoms Pulmonary: Reports: No Symptoms Cardiovascular: Reports: No Symptoms Gastrointestinal: Reports: No Symptoms Genitourinary: Reports: No Symptoms Musculoskeletal: Reports: No Symptoms Skin: Reports: No Symptoms Neurological: Reports: No Symptoms Psychiatric: Reports: No Symptoms - Patient Data Vitals - Most Recent: Last Vital Signs Temp 98 F 08/10/20 08:19 Pulse 80 08/10/20 08:19 Resp 20 08/10/20 08:19 BP 128/87 08/10/20 08:19 Pulse Ox 93 L 08/10/20 08:19 Weight - Most Recent: 74.843 kg Lab Results - Last 24 hrs: Laboratory Results - last 24 hr 08/10/20 Range/Units 05:48 Hgb 12.0 (12.0-16.0) g/dL Hct 36.8 (36.0-46.0) % Med Orders - Current: Current Medications Acetaminophen (Tylenol Extra Strength) 500 mg PO Q4H PRN PRN Reason: Pain Acetaminophen (Tylenol Extra Strength) 1,000 mg PO Q4H PRN PRN Reason: Pain Benzocaine/Menthol (Dermoplast Pain Relief 20%-0.5% [place]) 78 gm TOP ASDIRECTED PRN PRN Reason: Perineal Comfort Measure Bisacodyl (Dulcolax) 10 mg RECTAL ONETIME PRN PRN Reason: Constipation Butorphanol Tartrate (Stadol) 1 mg IVPUSH Q1H PRN PRN Reason: Pain Carboprost Tromethamine (Hemabate Ds) 250 mcg IM ASDIRECTED PRN PRN Reason: Post Hemorrhage Docusate Sodium (Colace) 100 mg PO BID PRN PRN Reason: Constipation Emollient Ointment (Lansinoh Hpa) 0 gm TOP ASDIRECTED PRN PRN Reason: Sore Nipples Last Admin: 08/09/20 19:47 Dose: 7 gm Documented by: Lactated Ringer's (Ringers, Lactated) 1,000 mls @ 150 mls/hr IV ASDIRECTED [facility] Last Admin: 08/08/20 22:15 Dose: 999 mls/hr Documented by: Oxytocin/Sodium Chloride (Oxytocin 30 Unit/500 Ml-Ns) 30 unit in 500 mls @ 999 mls/hr IV TITRATE [facility] Last Infusion: 08/09/20 02:17 Dose: 999 mls/hr Documented by: Tranexamic Acid 1,000 mg/ (Sodium Chloride) 110 mls @ 660 mls/hr IV ONETIME PRN PRN Reason: Bleeding Ibuprofen (Motrin) 400 mg PO Q4H PRN PRN Reason: Pain Ibuprofen (Motrin) 800 mg PO Q6H PRN PRN Reason: Pain Last Admin: 08/10/20 07:55 Dose: 800 mg Documented by: Lidocaine HCl (Xylocaine 1%) 50 ml INJECT ONETIME PRN PRN Reason: Laceration repair Methylergonovine Maleate (Methergine) 0.2 mg IM ASDIRECTED PRN PRN Reason: Post Hemorrhage Misoprostol (Cytotec) 200 mcg PO ONETIME PRN PRN Reason: Post Hemorrhage Nalbuphine HCl (Nubain) 10 mg IVPUSH Q1H PRN PRN Reason: Pain (severe 7-10) Ondansetron HCl (Zofran) 4 mg IVPUSH Q6H PRN PRN Reason: Nausea/Vomiting Sodium Chloride (Saline Flush) 10 ml FLUSH ASDIRECTED PRN PRN Reason: Keep Vein Open Sodium Chloride (Saline Flush) 2.5 ml FLUSH ASDIRECTED PRN PRN Reason: Keep Vein Open Sodium Chloride (Normal Saline) 10 ml IV ASDIRECTED PRN PRN Reason: IV Use Sterile Water (Sterile Water For Irrigation) 1,000 ml IRR ASDIRECTED PRN PRN Reason: delivery Witch [place] (Tucks) 1 pad TOP ASDIRECTED PRN PRN Reason: comfort care Discontinued Medications Fentanyl (Sublimaze) Confirm Administered Dose 100 mcg .ROUTE .STK-MED ONE Stop: 08/08/20 21:39 Last Admin: 08/09/20 21:22 Dose: Not Given Documented by: Ampicillin Sodium 2 gm/ Sodium (Chloride) 100 mls @ 200 mls/hr IV ONETIME ONE Stop: 08/08/20 20:59 Last Admin: 08/08/20 21:01 Dose: 200 mls/hr Documented by: Ampicillin Sodium 1 gm/ Sodium (Chloride) 50 mls @ 100 mls/hr IV Q4H MARGARITA Last Admin: 08/09/20 00:45 Dose: 100 mls/hr Documented by: Ropivacaine (Naropin 0.2%) Confirm Administered Dose 100 mls @ as directed .ROUTE .STK-MED ONE Stop: 08/08/20 21:40 Last Admin: 08/09/20 21:23 Dose: Not Given Documented by: Ropivacaine (Naropin 0.2%) Confirm Administered Dose 20 ml .ROUTE .STK-MED ONE Stop: 08/08/20 21:39 Last Admin: 08/09/20 21:22 Dose: Not Given Documented by: - Exam General: Reports: Alert, Oriented Neck: Reports: Supple Lungs: Reports: Normal Respiratory Effort Cardiovascular: Reports: Regular Rate GI/Abdominal Exam: Soft, Non-Tender Extremities: Normal Inspection Psy/Mental Status: Reports: Alert, Normal Affect, Normal Mood
== END 2020-08-10 16:35 | disposition home or self-care (01) | DRG 807 ==
LOC: MW.OBCHECK 18:26 → MW.OB 18:27 → MW.OBCHECK 20:16 → MW.OB 20:16 → OBSVTOIN 08-09 02:16 → MW.OB 08-09 04:54
PROVIDERS: ADMIT Obstetrics & Gynecology; ATTEND Obstetrics & Gynecology Obstetrics
PROC: 10E0XZZ Delivery of Products of Conception, External Approach (ICD-10-PCS; principal; 2020-08-09)
PROC: 3E0R3BZ Introduction of Anesthetic Agent into Spinal Canal, Percutaneous Approach (ICD-10-PCS; 2020-08-09)
PROC: 00HU33Z Insertion of Infusion Device into Spinal Canal, Percutaneous Approach (ICD-10-PCS; 2020-08-09)
DX: O99.824 Streptococcus B carrier state complicating childbirth (principal); Z37.0 Single live birth; Z3A.38 38 weeks gestation of pregnancy; O69.81X0 Labor and delivery complicated by cord around neck, without compression, not applicable or unspecified; Z20.822 Contact with and (suspected) exposure to COVID-19
CPT/HCPCS: 01967; 36415; 51702; 59025; 59409; 85014; 85018; 85027; 86592; 86850; 86900; 86901; A9270-GY; J0290; J2590; J2795; J3010; J7120; U0002

== ENCOUNTER 2020-11-29 16:59 | Emergency (ER) | payer MEDICAID ==
[2020-11-29] MEDS ORDERED: Alum Hydrox/Mag Hydrox/Simeth 15 ML, Lidocaine 2% 5 ML PO ONE ×2 (18:39)
--- NOTE | 2020-11-29 19:26 | CR ---
INDICATION: Chest pain. TECHNIQUE: AP portable chest x-ray. FINDINGS: Heart size normal. Mild thoracolumbar curve. Lungs clear without infiltrate or consolidation. Chest otherwise negative without acute disease. Dictated by Suresh Patterson MD @ 11/29/2020 7:25:[address] Suresh Patterson @ Nov 29 2020 7:25PM
--- NOTE | 2020-11-29 19:53 | PCM.EKG ---
#1 Interpretation EKG Date: 11/29/20 Time: 18:50 Rhythm: NSR Rate (Beats/Min): 78 ST-T: Normal
[2020-11-29 20:26] LABS: BLOOD UREA NITROGEN,BUN 10 mg/dL (7.0-18.0); CARBON DIOXIDE,CO2 26.1 mmol/L (21.0-32.0); CHLORIDE,CL 101 mmol/L (98-107); GLUCOSE RANDOM 84 mg/dL (74-106); LIPASE 80 U/L (73-393); POTASSIUM,K 3.7 mmol/L (3.5-5.1); SODIUM,NA 136 mmol/L (136-145)
--- NOTE | 2020-11-29 20:40 | EDM.PDOC ---
ED HPI GENERAL MEDICAL PROBLEM - General Chief Complaint: ENT Problem Stated Complaint: FEELS LIKE SOMETHING IN STUCK IN CHEST AREA Time Seen by Provider: 11/29/20 17:02 Source of Information: Reports: Patient History Limitations: Reports: No Limitations - History of Present Illness INITIAL COMMENTS - FREE TEXT/NARRATIVE: HISTORY AND PHYSICAL: History of present illness: Patient is a 35-year-old female who presents emergency department secondary to a 3-day history of the sensation of food and water being stuck in her throat/dysphagia. She states she noticed the sensation following her sisters wedding after a night of heavier drinking as she does not typically drink so much alcohol and also notes it is associated with heartburn. Patient reports that since that time she feels like when she drinks or eats anything that it takes a long time for the food to reach her stomach but states she is able to eat and drink without vomiting. Patient reports that she has had heartburn during in the past and the sensation is similar to the heartburn in . Denies any other symptoms or concerns. Patient denies fever, chills, chest pain, shortness of breath, or cough. Denies headache, neck stiff ness, change in vision, syncope, or near syncope. Denies nausea, vomiting, abdominal pain, diarrhea, constipation, or dysuria. Has not noted any blood in urine or stool. Patient has been eating and drinking appropriately. Review of systems: As per history of present illness and below otherwise all systems reviewed and negative. Past medical history: As per history of present illness and as reviewed below otherwise noncontributory. Surgical history: As per history of present illness and as reviewed below otherwise noncontributory. Social history: See social history for further information Family history: As per history of present illness and as reviewed below otherwise noncontributory. Physical exam: General: Patient is alert, oriented, and in no acute distress. Patient sitting comfortably on exam table. Vitals are stable and reviewed by me. HEENT: Atraumatic, normocephalic, pupils equal and reactive bilaterally, negative for conjunctival pallor or scleral icterus, mucous membranes moist, TMs normal bilaterally, throat clear, neck supple, nontender, trachea midline. No drooling or trismus noted. No meningeal signs. No hot potato voice noted. Lungs: Clear to auscultation, breath sounds equal bilaterally, chest nontender. Heart: S1S2, regular rate and rhythm without overt murmur Abdomen: Soft, nondistended, nontender. Negative for masses or hepatosplenomegaly. Negative for costovertebral tenderness. Pelvis: Stable nontender. Genitourinary: Deferred. Rectal: Deferred. Skin: Intact, warm, dry. No lesions or rashes noted. Extremities: Atraumatic, negative for cords or calf pain. Neurovascular unremarkable. Neuro: Awake, alert, oriented. Cranial nerves II through XII unremarkable. Cerebellum unremarkable. Motor and sensory unremarkable throughout. Exam nonfocal. Notes: Patient is a 35-year-old female presents emergency department secondary to a 3- day history of dysphagia / slow transit time of food / liquids to the stomach and associated heartburn following a night of heavier alcohol use when typically does not drink much. To the ED, patient is vitally stable and well-appearing on exam. She is able to tolerate p.o. intake without vomiting but does note a feeling of it taking longer to get to her stomach. Will obtain cardiac evaluation and routine labwork. See Dr. Gallardo's dictation for specific EKG interpretation. Otherwise, normal sinus rhythm with no evidence of ischemia or ST elevation or depression. Chest x-ray is no acute cardiopulmonary findings. CBC shows isolated mild elevated white count of 13 otherwise remainder of labwork/ mild derangements unremarkable; hcg negative. At this time, mild elevation of leukocytosis is uncertain as to cause given no source of infection at this time. Upon reevaluation of patient, she remains vitally stable and comfortable throughout stay in ED. Patient does not want to leave urinalysis at this time as she does not want to wait any longer. Discussed taking [id number] Prilosec as directed for 2 weeks and using antacids [id number]-[id number] for symptomatic relief. Signs and symptoms that were prompt return to the ED thoroughly discussed with patient. Discussed importance for follow-up with a primary care provider and follow up for isolated mild leukocytosis. Voices understanding and is agreeable to plan of care. Denies any further questions or concerns at this time. Diagnostics: EKG, CBC, CMP, chest x-ray, hcg serum qual (patient declines leaving a urine sample at this time) Therapeutics: GI cocktail Prescription: None Impression: Dysphagia Heartburn Leukocytosis, mild, unspecified Plan: 1. Take [id number] Prilosec as directed on the box for the next 2 weeks as discussed. You can also use dsvd-tcu-wslqzyj antacid as directed and as discussed. 2. Refrain from using ibuprofen or additional NSAIDs, as this can worsen symptoms. You can use Tylenol as directed for pain and discomfort. 3. Follow-up with your primary care provider as discussed. Return to the ED as needed and as discussed. Definitive disposition and diagnosis as appropriate pending reevaluation and review of above. 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 ED EXAM, GENERAL - Physical Exam Exam: See Below (see dictation) Course - Vital Signs Last Recorded V/S: Last Vital Signs Temp 97.3 F 11/29/20 17:36 Pulse 84 11/29/20 21:01 Resp 16 11/29/20 21:01 BP 126/80 11/29/20 21:01 Pulse Ox 98 11/29/20 21:01 - Orders/Labs/Meds Labs: Laboratory Tests 11/29/20 11/29/20 11/29/20 Range/Units 19:38 19:38 19:38 WBC 13.61 H (4.0-11.0) K/uL RBC 3.95 L (4.30-5.90) M/uL Hgb 12.5 (12.0-16.0) g/dL Hct 37.5 (36.0-46.0) % MCV 94.9 (80.0-98.0) fL MCH 31.6 (27.0-32.0) pg MCHC 33.3 (31.0-37.0) g/dL RDW Std Deviation 44.6 (28.0-62.0) fl RDW Coeff of Logan 13 (11.0-15.0) % Plt Count 214 (150-400) K/uL MPV 10.80 (7.40-12.00) fL Neut % (Auto) 80.2 H (48.0-80.0) % Lymph % (Auto) 12.3 L (16.0-40.0) % [place] % (Auto) 5.6 (0.0-15.0) % Eos % (Auto) 1.8 (0.0-7.0) % Baso % (Auto) 0.1 (0.0-1.5) % Neut # (Auto) 10.9 H (1.4-5.7) K/uL Lymph # (Auto) 1.7 (0.6-2.4) K/uL [place] # (Auto) 0.8 (0.0-0.8) K/uL Eos # (Auto) 0.3 (0.0-0.7) K/uL Baso # (Auto) 0.0 (0.0-0.1) K/uL Nucleated RBC % 0.0 /100WBC Nucleated RBCs # 0 K/uL Sodium 136 (136-145) mmol/L Potassium 3.7 (3.5-5.1) mmol/L Chloride 101 (98-107) mmol/L Carbon Dioxide 26.1 (21.0-32.0) mmol/L BUN 10 (7.0-18.0) mg/dL Creatinine 0.7 (0.6-1.0) mg/dL Est Cr Clr Drug Dosing 90.41 mL/min Estimated GFR (MDRD) > 60.0 ml/min Glucose 84 (74-106) mg/dL Calcium 9.1 (8.5-10.1) mg/dL Total Bilirubin 1.0 (0.2-1.0) mg/dL AST 11 L (15-37) IU/L ALT 17 (14-63) IU/L Alkaline Phosphatase 48 (46-116) U/L Troponin I < 0.050 (0.000-0.056) ng/mL Total Protein 7.2 (6.4-8.2) g/dL Albumin 3.6 (3.4-5.0) g/dL Globulin 3.6 (2.6-4.0) g/dL Albumin/Globulin Ratio 1.0 (0.9-1.6) Lipase 80 (73-393) U/L HCG, Qual NEGATIVE (NEG) Meds: Medications Discontinued Medications Generic Name Dose Route Start Last Admin Trade Name Freq PRN Reason Stop Dose Admin Al Hydroxide/Mg Hydroxide 15 0 ml 11/29/20 18:39 11/29/20 19:38 ml/ Lidocaine HCl 5 ml PO 11/29/20 18:40 20 each ONETIME ONE Administration Departure - Departure Time of Disposition: 20:39 Disposition: Home, Self-Care 01 Clinical Impression: Heartburn Dysphagia Qualifiers: Dysphagia type: unspecified Qualified Code(s): R13.10 - Dysphagia, unspecified Leukocytosis Qualifiers: Leukocytosis type: unspecified Qualified Code(s): D72.829 - Elevated white blood cell count, unspecified - Discharge Information Instructions: Dysphagia, Dysphagia Eating Plan, Bite Size Food Referrals: Edna Jeffers DO [Primary Care Provider] - Forms: ED Department Discharge Additional Instructions: The following information is given to patients seen in the emergency department who are being discharged to home. This information is to outline your options for follow-up care. We provide all patients seen in our emergency department with a follow-up referral. The need for follow-up, as well as the timing and circumstances, are variable depending upon the specifics of your emergency department visit. If you don't have a primary care physician on staff, we will provide you with a referral. We always advise you to contact your personal physician following an emergency department visit to inform them of the circumstance of the visit and for follow-up with them and/or the need for any referrals to a consulting specialist. The emergency department will also refer you to a specialist when appropriate. This referral assures that you have the opportunity for follow-up care with a specialist. All of these measure are taken in an effort to provide you with optimal care, which includes your follow-up. Under all circumstances we always encourage you to contact your private physician who remains a resource for coordinating your care. When calling for follow-up care, please make the office aware that this follow-up is from your recent emergency room visit. If for any reason you are refused follow-up, please contact the [facility] Emergency Department at and asked to speak to the emergency department charge nurse. [facility] [address] [place] [id number] [facility] [address] [place] [id number] 1. Take bssd-uxn-[id number] Prilosec as directed on the box for the next 2 weeks as discussed. You can also use iwrn-nte-vddhiao antacid as directed and as discussed. 2. Refrain from using ibuprofen or additional NSAIDs, as this can worsen symptoms. You can use Tylenol as directed for pain and discomfort. 3. Follow-up with your primary care provider as discussed. Return to the ED as needed and as discussed. Sepsis Event Note (ED) - Evaluation Sepsis Screening Result: No Definite Risk
[2020-11-29 21:02] VITALS: BP 126/80; PULSE 84
== END 2020-11-29 21:02 | disposition home or self-care (01) ==
LOC: MW.ED 16:59
DX: R13.10 Dysphagia, unspecified (principal); R12 Heartburn; D72.829 Elevated white blood cell count, unspecified; Z72.0 Tobacco use
CPT/HCPCS: 36415; 71045; 80053; 83690; 84484; 84703; 85025; 93005; 99284; A9270; 93010; 99283

== ENCOUNTER 2022-12-10 12:52 | Emergency (ER) | payer MEDICAID ==
[2022-12-10 19:42] VITALS: BP 129/87; PULSE 82
== END 2022-12-10 13:51 | disposition home or self-care (01) ==
LOC: MW.ED 12:52
DX: J02.9 Acute pharyngitis, unspecified (principal); H66.003 Acute suppurative otitis media without spontaneous rupture of ear drum, bilateral
CPT/HCPCS: 99282